=== PATIENT | female | born 1940 | race Caucasian/White ===

== ENCOUNTER 2016-10-03 08:16 | Day surgery (SDC) | payer MEDICARE, BC ==
[~2016-10-03] VITALS: Ht 157.5 cm; Wt 53.0 kg
[2016-10-03] VITALS (9 sets, daily range): BP systolic 81–114; BP diastolic 39–63; PULSE 59–95; TEMP 97.1
[~2016-10-03 08:16] MED LIST: ALEVE 220MG220 MG PO; ASPIRIN 32325 MG/TAB PO; CEPHALEXIN500 M1 PO; DILANTIN; DILANTIN 100MG100 MG PO; FOSAMAX PO; MULTIPLE VITAMI1 CAP PO; TYLENOL 325MG325 MG PO; ULTRAM 50MG TAB50 MG PO; VITAMINS
[2016-10-03] MEDS ORDERED: VITAMIN D1000 IU PO (09:48)
[2016-10-03] MEDS ORDERED: NORCO 325 MG-7.1 TAB PO (09:49)
[2016-10-03] MEDS ORDERED: DILANTIN 100MG100 MG PO ×2 (09:50)
[2016-10-03] MEDS ORDERED: MIRALAX PA17 GM/Dose PO (09:52)
[2016-10-03] MEDS ORDERED: PRILOSEC 20MG20 MG PO (09:53)
[2016-10-03] MEDS ORDERED: B-121000 MCG PO (09:53)
[2016-10-03] MEDS ORDERED: CALCIUM 600 PLU1 TAB PO (09:54)
[2016-10-03] MEDS ORDERED: PROLIA60 MG/ML IM (09:55)
== END 2016-10-03 12:00 | disposition home or self-care (01) ==
LOC: SDCO 08:16
DX: J98.4 Other disorders of lung (principal); J20.9 Acute bronchitis, unspecified; R05 Cough; Z79.899 Other long term (current) drug therapy; Z87.891 Personal history of nicotine dependence; R93.8 Abnormal findings on diagnostic imaging of other specified body structures
CPT/HCPCS: J0456; J2704; J2920; J7030; J7050

== ENCOUNTER → 2016-11-07 | Outpatient (CLI) | payer MEDICARE, BC ==
[~2016-11-07] MED LIST changes: +B-121000 MCG PO; +CALCIUM 600 PLU1 TAB PO; +MIRALAX PA17 GM/Dose PO; +NORCO 325 MG-7.1 TAB PO; +PRILOSEC 20MG20 MG PO; +PROLIA60 MG/ML IM; +VITAMIN D1000 IU PO
== END ==
LOC: MC.RAD 10:24
DX: Z12.31 Encounter for screening mammogram for malignant neoplasm of breast (principal)

== ENCOUNTER → 2018-04-19 | Outpatient (CLI) | payer MEDICARE, BC | LOC: MC.RAD 11:39 | DX: Z12.31 Encounter for screening mammogram for malignant neoplasm of breast (principal) ==

== ENCOUNTER 2018-09-09 08:47 | Outpatient (CLI) | payer MEDICARE, BC ==
--- NOTE | 2018-09-06 11:00 | NUR ---
left on the machine. spoke to daughter eariler, daughter called us.
[~2018-09-09] VITALS: Ht 157.5 cm; Wt 61.2 kg
[~2018-09-09 08:47] MED LIST changes: +ALEVE LIQCAPS PO; +GLUCOSAMINE & C1 TAB PO; +NATURAL POTASS595 MG PO; +TYLENOL 8 HR PO
[2018-09-09] MEDS ORDERED: DILANTIN 100MG100 MG PO ×2 (09:09→09:10)
[2018-09-09] MEDS ORDERED: NORCO 325 MG-7.1 TAB PO (09:10)
[2018-09-09] MEDS ORDERED: TYLENOL 8 HR PO (09:11)
[2018-09-09] MEDS ORDERED: VITAMIN B122500 MCG SL (09:12)
[2018-09-09] MEDS ORDERED: GLUCOSAMINE MSM1 TAB PO (09:12)
[2018-09-09] MEDS ORDERED: VITAMIN D31000 I1 (09:14)
[2018-09-09] MEDS ORDERED: MIRALAX PA17 GM/Dose PO (09:15)
[2018-09-09] MEDS ORDERED: NATURAL POTASS595 MG PO (09:15)
[2018-09-09 09:16] VITALS: BP 122/63; PULSE 67
[2018-09-09 10:20] VITALS: BP 124/63; PULSE 70
--- NOTE | 2018-09-09 11:22 | NUR ---
PT VITALS REMAINED STABLE POST LP. TOLERATING FLUIDS PO WITHOUT ISSUE AND DENIES PAIN WHEN LAYING DOWN AT THIS TIME. BAND AID TO BACK REMAINED C/D/I.DISCHARGE INSTRUCTIONS REVIEWED AND SIGNED. PT WHEELED OUT SAFELY VIA WHEELCHAIR. DAUGHTER PRESENT HER RIDE HOME.
== END 2018-09-09 11:22 | disposition home or self-care (01) ==
LOC: COL.RAD 08:47
DX: S22.080A Wedge compression fracture of T11-T12 vertebra, initial encounter for closed fracture (principal); S32.010A Wedge compression fracture of first lumbar vertebra, initial encounter for closed fracture; S32.020A Wedge compression fracture of second lumbar vertebra, initial encounter for closed fracture; M48.061 Spinal stenosis, lumbar region without neurogenic claudication
CPT/HCPCS: Q9965

== ENCOUNTER → 2018-10-12 | Outpatient (CLI) | payer MEDICARE, BC ==
[~2018-10-12] MED LIST changes: +GLUCOSAMINE MSM1 TAB PO; +VITAMIN B122500 MCG SL; +VITAMIN D31000 I1
== END ==
LOC: MHCPAIN 10:33
DX: G89.29 Other chronic pain (principal); M47.817 Spondylosis without myelopathy or radiculopathy, lumbosacral region; M53.3 Sacrococcygeal disorders, not elsewhere classified
CPT/HCPCS: G0463

== ENCOUNTER → 2018-10-14 | Outpatient (CLI) | payer MEDICARE, BC | LOC: MHCPAIN 13:45 | DX: M47.817 Spondylosis without myelopathy or radiculopathy, lumbosacral region (principal); M54.16 Radiculopathy, lumbar region | CPT/HCPCS: J1040; Q9967 ==

== ENCOUNTER → 2019-04-19 | Outpatient (CLI) | payer MEDICARE, BC | LOC: MHCPAIN 09:09 | DX: G89.29 Other chronic pain (principal); M47.817 Spondylosis without myelopathy or radiculopathy, lumbosacral region; M53.3 Sacrococcygeal disorders, not elsewhere classified | CPT/HCPCS: G0463 ==

== ENCOUNTER → 2019-05-12 | Outpatient (CLI) | payer MEDICARE, BC | LOC: MHCPAIN 08:00 | DX: M43.8X5 Other specified deforming dorsopathies, thoracolumbar region (principal); M51.36 Other intervertebral disc degeneration, lumbar region | CPT/HCPCS: J1040; Q9967 ==

== ENCOUNTER → 2019-07-28 | Outpatient (CLI) | payer MEDICARE, BC | LOC: MHCPAIN 08:03 | DX: M47.27 Other spondylosis with radiculopathy, lumbosacral region (principal) | CPT/HCPCS: J1100; Q9967 ==

== ENCOUNTER → 2019-10-25 | Outpatient (CLI) | payer MEDICARE, BC | LOC: MHCPAIN 08:09 | DX: M47.817 Spondylosis without myelopathy or radiculopathy, lumbosacral region (principal); M54.5 Low back pain; M53.3 Sacrococcygeal disorders, not elsewhere classified; M48.061 Spinal stenosis, lumbar region without neurogenic claudication | CPT/HCPCS: G0463 ==

== ENCOUNTER 2020-12-28 12:59 | Emergency (ER) | payer MEDICARE, BC ==
[~2020-12-28] VITALS: Ht 157.5 cm; Wt 50.0 kg
[2020-12-28 13:00] VITALS: TEMP 98.5
[2020-12-28 13:51] LABS: BASO # 0.1 (0.0-0.2); BASO % 0.8 % (0.0-2.0); EOS # 0.2 (0.0-0.7); EOS % 2.2 % (0-4.0); GRAN # 6.4 (1.4-6.5); GRAN % 69.5 % (42.2-75.2); HEMOGLOBIN 11.1 g/dl (12.5-16.0); LYMPH # 1.3 (1.2-3.4); LYMPH % 14.5 % (20.0-51.0); MEAN CELL VOLUME 100 fl (80.0-100.0); MEAN CORPUSCULAR HEMOGLOBIN 33 pg (27.0-31.0); MEAN CORPUSCULAR HGB CONC 33 g/dl (33.0-37.0); MEAN PLATELET VOLUME 9.4 fl (7.4-10.4); MONO # 1.2 (0.1-0.6); MONO % 12.7 % (1.7-9.3); PLATELET COUNT 185 K/mm3 (130-400); RED BLOOD COUNT 3.41 M/mm3 (4.10-5.30)
[2020-12-28 14:04] LABS: ALBUMIN 3.6 gm/dL (3.5-5.0); BILIRUBIN,TOTAL 0.2 mg/dL (0.0-1.0); CALCIUM 8.9 mg/dL (8.4-10.2); CREATININE, serum 0.81 (0.52-1.25); TOTAL PROTEIN 6.3 gm/dL (6.4-8.2)
[2020-12-28 18:55] VITALS: BP 111/87; PULSE 61
== END 2020-12-28 19:00 | disposition home or self-care (01) ==
LOC: COL.ER 12:59
PROVIDERS: Personal Emergency Response Attendant
DX: M25.552 Pain in left hip (principal); M25.551 Pain in right hip; G40.909 Epilepsy, unspecified, not intractable, without status epilepticus; Z79.899 Other long term (current) drug therapy; W17.89XA Other fall from one level to another, initial encounter
CPT/HCPCS: J2270

== ENCOUNTER → 2021-09-09 | Outpatient (CLI) | payer MEDICARE, BC | LOC: COL.CARD 09:46 | DX: G40.209 Localization-related (focal) (partial) symptomatic epilepsy and epileptic syndromes with complex partial seizures, not intractable, without status epilepticus (principal) ==

== ENCOUNTER 2023-10-05 22:39 | Observation (INO) | payer MEDICARE, BC ==
[~2023-10-05] VITALS: Ht 157.5 cm; Wt 53.1 kg
[2023-10-05 23:08] LABS: BASO % 0.4 % (0.0-2.0); EOS # 0.1 K/mm3 (0.0-0.7); EOS % 0.9 % (0.0-4.0); GRAN # 5.4 K/mm3 (1.4-6.5); GRAN % 72.9 % (42.2-75.2); HEMATOCRIT 37.2 % (37.0-47.0); HEMOGLOBIN 12.7 g/dl (12.5-16.0); LYMPH # 0.9 K/mm3 (1.2-3.4); LYMPH % 11.5 % (20.0-51.0); MEAN CELL VOLUME 95 fl (80.0-100.0); MEAN CORPUSCULAR HEMOGLOBIN 32 pg (27-31); MEAN CORPUSCULAR HGB CONC 34 g/dl (33.0-37.0); MONO % 13.9 % (1.7-9.3); PLATELET COUNT 158 K/mm3 (130-400); RED BLOOD COUNT 3.92 M/mm3 (4.10-5.30); REDCELL DISTRIBUTION WIDTH-CV 12.4 % (11.5-14.5)
[2023-10-05 23:13] LABS: COLLECTION METHOD CATHETER
[2023-10-05 23:20] LABS: PH 5.5 (5.0-8.5); URINE APPEARANCE CLEAR (CLEAR/HAZY); URINE BLOOD TRACE (NEGATIVE); URINE COLOR YELLOW (YELLOW); URINE GLUCOSE NEGATIVE (NEGATIVE); URINE KETONE NEGATIVE (NEGATIVE); URINE NITRATE NEGATIVE (NEGATIVE); URINE PROTEIN(semi-quant) TRACE (NEGATIVE); URINE UROBILINOGEN 0.2 E.U/dL (0.2-1.0)
[2023-10-05 23:31] LABS: ALANINE AMINOTRANSFERASE 15 U/L (0-55); ALBUMIN 3.8 g/dL (3.4-4.8); ALKALINE PHOSPHATASE 43 U/L (40-150); ANION GAP 10 mmol/L (7-16); AST,SGOT 22 U/L (5-34); BILIRUBIN,TOTAL 0.3 mg/dL (0.2-1.2); BLOOD UREA NITROGEN 13 mg/dL (10-20); CALCIUM 9.1 mg/dL (8.4-10.2); CHLORIDE 95 mEq/L (98-107); CREATININE, serum 0.75 mg/dL (0.57-1.11); GLUCOSE 123 mg/dL (70-99); LIPASE 34 U/L (8-78); POTASSIUM 4.3 mEq/L (3.5-4.5); SODIUM 129 mEq/L (136-145); TOTAL PROTEIN 6.8 g/dl (6.2-8.1)
[2023-10-05 23:37] LABS: TROPONIN-I < 0.010 ng/mL (0.00-0.033)
[2023-10-05 23:44] LABS: URINE BACTERIA RARE /hpf (NONE SEEN); URINE RBC NONE SEEN /hpf (0-2); URINE WBC 0-2 /hpf (0-2)
[2023-10-06] MEDS ORDERED: Iohexol 300 - 100 ML VIAL IV ONE (00:06)
[2023-10-06] MEDS ORDERED: NS 50 ML IV ONE (00:06)
[2023-10-06] MEDS ORDERED: Ondansetron 4 MG/2 ML VIAL IV PRN (03:30)
[2023-10-06] MEDS ORDERED: NS 1,000 ML IV SCH (03:30)
[2023-10-06] MEDS ORDERED: Acetaminophen 325 MG TAB PO PRN (03:30)
[2023-10-06 04:09] VITALS: BP 145/70; PULSE 74; TEMP 98.2
--- NOTE | 2023-10-06 04:16 | NUR ---
PATIENT UP TO MEDICAL FLOOR AT APPROX 0340. PATIENT IS ALERT, BUT NOT COMPLETELY ORIENTED. PATIENT SPEAKS ABOUT FAMILY AND EVENTS IN THE PAST, BUT DOES NOT COMPLETELY FINISH THE THOUGHT. UNABLE TO ANSWER ALL QUESTIONS FROM ADMISSION INTAKE. ADMISSION ASSESSMENT COMPLETE. TELEMETRY ON. PATIENT HAS IV TO RIGHT AC, CDI. PATIENT HAS THIN, DRY SKIN. REDNESS NOTED TO BACK AND BUTTOCKS. EXCORIATION NOTED TO COCCYX AREA. THIS NURSE PROVIDED JOHNNIE CARE D/T INCONINENCE OF URINE. BARRIER CREAM APPLIED TO BUTTOCKS. MIPLEX DRSG APPLIED TO COCCYX. HEELS ARE BOGGY AND RED. THIS NURSE APPLIED HEEL BOOTS TO RELIEVE PRESSURE. SEIZURE PADS APPLIED TO BED. FALL PRECAUTIONS IN PLACE. PATIENT DOES AMBULATE WELL WITH ASSISTANCE.
--- NOTE | 2023-10-06 04:48 | NUR ---
PATIENT TO CT VIA WHEELCHAIR AT 0446. PATIENT IS ALERT AND ORIENTED.
[2023-10-06] MEDS ORDERED: CYMBALTA 60MG60 MG PO (05:10)
[2023-10-06] MEDS ORDERED: ARICEPT10 MG PO (05:11)
[2023-10-06] MEDS ORDERED: ATIVAN 0.50.5 MG/TAB PO (05:11)
--- NOTE | 2023-10-06 05:28 | NUR ---
PATIENT BACK TO ROOM FROM CT. ALERT AND ORIENTED TO BASELINE. PATIENT AMBULATED TO BATHROOM WELL. FALL PRECAUTIONS IN PLACE. CALL LIGHT WITHIN REACH.
[2023-10-06 07:44] VITALS: BP 122/63; PULSE 66; TEMP 98.5
[2023-10-06] MEDS ORDERED: levETIRAcetam 500 MG TAB PO SCH (09:00)
[2023-10-06] MEDS ORDERED: DILANTIN KAPSEA30 MG PO (09:20)
[2023-10-06] MEDS ORDERED: KEPPRA XR750 MG PO (09:20)
[2023-10-06 11:04] VITALS: BP 107/57; PULSE 82; TEMP 98.1
--- NOTE | 2023-11-02 12:32 | NUR ---
DOWNTIME NOTE: An Electronic Health Record (EHR) downtime event occurred during this patient's care. For legal medical record information generated during the downtime period, please reference the patient's legal medical record. Paper or scanned documentation has been incorporated into the legal medical record which is maintained in accordance with Health Information Management (HIM) and record retention policies.
== END 2023-10-06 13:50 | disposition home or self-care (01) ==
LOC: COL.ER 22:39 → MEDICAL 10-06 02:29
PROVIDERS: Emergency Medicine; ADMIT Internal Medicine
DX: G93.41 Metabolic encephalopathy (principal); E86.0 Dehydration; R56.9 Unspecified convulsions; Z79.899 Other long term (current) drug therapy
CPT/HCPCS: G0378; J1650; J7030; Q9967